=== PATIENT | male | born 1940 | race Two or more races ===

== ENCOUNTER → 2016-07-16 | Outpatient (CLI) | payer MEDICARE, OTHER ==
--- NOTE | 2016-07-16 17:09 | RADRPT ---
PROCEDURE: XR Knees. CLINICAL INDICATION: Bilateral knee pain. TECHNIQUE: Total of eight views. Weightbearing frontal, oblique, and lateral views of the both kn ees. Patellar views of both knees. COMPARISON: No prior study is available for comparison. FINDINGS: There is no fracture or dislocation. Vascular calcifications are present consistent with atherosclerosis. There is diffuse osteopenia. On the right side, there are degenerative changes with medial joint compartment narrowing, subarticu lar sclerosis, and small osteophytes. On the left side, there are degenerative changes with lateral joint compartment narrowing, osteophyt es arising from all 3 joint compartment margins, and lateral joint compartment deformity. There is no lytic or blastic lesion. There is no radiopaque foreign body. IMPRESSION: 1. 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 2. Severe degenerative changes of the left knee. 3. Diffuse osteopenia. 4. Atherosclerosis. RPTAT: QQ .David Garcia MD, MD Date Time Electronically viewed and signed by .David Garcia MD, MD on 07/16/2016 17:09 .R/
== END | disposition home or self-care (01) ==
LOC: HKI 09:04
PROVIDERS: ATTEND Orthopaedic Surgery
DX: M17.0 Bilateral primary osteoarthritis of knee (principal); M25.561 Pain in right knee; M25.562 Pain in left knee; M10.9 Gout, unspecified; Z87.891 Personal history of nicotine dependence
CPT/HCPCS: 73564; G0463